=== PATIENT | male | born 1985 | race Caucasian/White ===

== ENCOUNTER 2016-11-18 20:02 | Emergency (ER) | payer SELFPAY ==
[~2016-11-18] VITALS: Ht 180.3 cm; Wt 129.3 kg
[2016-11-18 20:33] VITALS: BP 133/77
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
--- NOTE | 2016-11-18 22:35 | CT SCAN REPORT ---
EXAMINATION: CT CHEST WITHOUT CONTRAST CLINICAL INFORMATION: Chest pain following injury. Evaluate for fracture. COMPARISON: None. TECHNIQUE: Multidetector volumetric CT imaging of the chest was done. Axial MIP volume rendering provided. Sagittal and coronal reformatted images were obtained. DLP: 737 mGy-cm FINDINGS: OUTSIDE SALES ENGINEER: Marionette Performer view of the chest demonstrates symmetric expansion of the bilateral lungs. LUNGS: The lungs are well-expanded and clear. There are no findings indicative of pulmonary contusion or laceration in the setting of trauma. No focal airspace consolidation to suggest infection. No suspicious pulmonary nodules or masses. The central airways are patent, without endobronchial obstructing lesions. MEDIASTINUM: Normal heart size, without significant pericardial effusion. Normal three-vessel branching of the aortic arch. Normal caliber of the thoracic aorta and main pulmonary artery. No significant mediastinal or hilar adenopathy. PLEURA: No pleural effusions or pneumothoraces. AXILLA: No axillary adenopathy. UPPER ABDOMEN: No acute findings within the upper abdomen. OSSEOUS STRUCTURES: No acute osseous abnormality. Specifically, no acute rib fractures. Normal alignment of the imaged thoracic spine. IMPRESSION: No acute thoracic abnormality. No findings indicative of pulmonary contusion or laceration in the setting of trauma. No acute osseous abnormalities. Specifically, no acute bilateral rib fractures.
== END 2016-11-18 23:39 ==
LOC: ERH 20:02
DX: S20.212A Contusion of left front wall of thorax, initial encounter (principal); W18.09XA Striking against other object with subsequent fall, initial encounter